=== PATIENT | male | born 1995 | race Caucasian/White ===

== ENCOUNTER 2020-08-23 16:14 | Emergency (ER) | payer OTHER ==
[2020-08-23 16:32] VITALS: BP 123/75; PULSE 90; TEMP 98.6; BMI 25.8
[2020-08-23] MEDS ORDERED: DIPHTH,PERTUSS(ACELL),TET 0.5 ML DISP.SYRIN IM ONE ×2 (17:12→17:17)
== END 2020-08-23 20:18 | disposition home or self-care (01) ==
LOC: JERFT 16:14 → JER 16:14 → JERFT 20:18
PROC: 0JQ10ZZ Repair Face Subcutaneous Tissue and Fascia, Open Approach (ICD-10-PCS; principal; 2020-08-23)
PROC: 3E0234Z Introduction of Serum, Toxoid and Vaccine into Muscle, Percutaneous Approach (ICD-10-PCS; 2020-08-23)
DX: S01.112A Laceration without foreign body of left eyelid and periocular area, initial encounter (principal); S01.81XA Laceration without foreign body of other part of head, initial encounter; S01.412A Laceration without foreign body of left cheek and temporomandibular area, initial encounter
CPT/HCPCS: 70450-TC; 70486-TC; 90471; 90715; 99285-25

== ENCOUNTER 2020-08-30 18:59 | Emergency (ER) | payer OTHER ==
[2020-08-30 19:07] VITALS: BP 134/82; PULSE 74; TEMP 98.2; BMI 25.8
== END 2020-08-30 19:50 | disposition home or self-care (01) ==
LOC: JERFT 18:59
DX: S01.81XA Laceration without foreign body of other part of head, initial encounter (principal); Z48.02 Encounter for removal of sutures
CPT/HCPCS: 99281-25